=== PATIENT | female | born 1940 | race Caucasian/White ===

== ENCOUNTER 2018-02-06 18:49 | Inpatient (IN) | payer MEDICARE, BC ==
[~2018-02-06] VITALS: Ht 160 cm; Wt 90.0 kg
[2018-02-06 19:38] LABS: HEMOGLOBIN 15.7 g/dl (12.0-16.0); IMMATURE GRANULOCYTES 0.4 % (0.0-1.0); MEAN CORPUSCULAR HGB 29.4 pG CALC (26.0-32.0); MEAN CORPUSCULAR HGB CONC 33.4 g/L CALC (32.0-36.0); NEUT# 11.56 thou/uL (2.00-7.15); RED BLOOD COUNT 5.34 mill/uL (4.20-5.60); RED CELL DISTRI WIDTH 12.9 % (11.5-15.5)
[2018-02-06 19:51] LABS: ALBUMIN 4.8 g/dL (3.2-5.0); ALKALINE PHOSPHATASE 89 u/l (38-126); AMYLASE 43 u/l (30-110); ANION GAP 21 (6-22 (CALC)); BILIRUBIN, TOTAL 0.8 mg/dL (0.0-1.4); BUN 18 mg/dL (8-23); BUN/CREATININE RATIO 20 (12-20 (CALC)); CARBON DIOXIDE 23 mmol/l (22-30); CHLORIDE 103 mmol/l (95-108); CREATININE 0.9 mg/dL (0.5-1.0); GFR > 60 ML/MIN (>=60 (CALC)); GFR FOR AFR.AMER. > 60 ML/MIN (>=60 (CALC)); LIPASE 152 u/l (23-300); POTASSIUM 4.7 mmol/l (3.5-5.1); SGOT/AST 40 u/l (9-36); SGPT/ALT 56 u/l (11-66); SODIUM 142 mmol/l (137-146); TOTAL PROTEIN 8.3 g/dL (6.3-8.2)
[2018-02-06 20:02] LABS: MYOGLOBIN 86 ng/mL (0 - 62)
[2018-02-06] MEDS ORDERED: METOPROLOL SUCC50 MG PO (20:03)
[2018-02-06] MEDS ORDERED: PROTONIX40 M4 ×2 (20:04→20:06)
[2018-02-06] MEDS ORDERED: LEVOTHYROXIN50 MC1 PO (20:04)
[2018-02-06] MEDS ORDERED: OCUVIT1 PO (20:05)
[2018-02-06] MEDS ORDERED: ASPIRIN ADULT L81 MG PO (20:05)
[2018-02-06] MEDS ORDERED: OTEZLA 10 & 201 TAB (20:05)
[2018-02-06] MEDS ORDERED: DUTOPROL1 TA1 PO (20:06)
[2018-02-06 22:29] LABS: URINE BILIRUBIN - DIPSTICK NEGATIVE (NEGATIVE); URINE BLOOD DIPSTICK TRACE-INTACT (NEGATIVE); URINE COLOR YELLOW; URINE GLUCOSE - DIPSTICK NEGATIVE (NEGATIVE); URINE KETONE 15 mg/dL (NEGATIVE); URINE LEUK ESTERASE NEGATIVE (NEGATIVE); URINE NITRITE - DIPSTICK NEGATIVE (Negative); URINE PROTEIN - DIPSTICK NEGATIVE (NEG-TRACE); URINE UROBILINOGEN - DIPSTICK 0.2 E.U./dL (0.2)
[2018-02-06 22:30] LABS: URINE CLARITY SL CLOUDY
[2018-02-07 00:10] VITALS: BP 130/72
[2018-02-07 04:35] VITALS: BP 119/67
[2018-02-07 07:55] VITALS: BP 118/55
[2018-02-07 10:21] LABS: HEMATOCRIT 41.4 % (37.0-47.0); MEAN CORPUSCULAR HGB CONC 31.9 g/L CALC (32.0-36.0); RED BLOOD COUNT 4.55 mill/uL (4.20-5.60); RED CELL DISTRI WIDTH 13.3 % (11.5-15.5)
[2018-02-07 10:31] LABS: HEMOGLOBIN 13.2 g/dl (12.0-16.0)
[2018-02-07 10:51] LABS: ALKALINE PHOSPHATASE 64 u/l (38-126); ANION GAP 15 (6-22 (CALC)); BILIRUBIN, TOTAL 0.7 mg/dL (0.0-1.4); BUN 17 mg/dL (8-23); BUN/CREATININE RATIO 19 (12-20 (CALC)); CARBON DIOXIDE 29 mmol/l (22-30); CHLORIDE 103 mmol/l (95-108); CREATININE 0.9 mg/dL (0.5-1.0); GFR > 60 ML/MIN (>=60 (CALC)); GFR FOR AFR.AMER. > 60 ML/MIN (>=60 (CALC)); POTASSIUM 4.7 mmol/l (3.5-5.1); SGOT/AST 25 u/l (9-36); SGPT/ALT 47 u/l (11-66); SODIUM 143 mmol/l (137-146)
[2018-02-07 10:53] LABS: ALBUMIN 3.6 g/dL (3.2-5.0); TOTAL PROTEIN 6.4 g/dL (6.3-8.2)
== END 2018-02-07 14:52 | disposition home or self-care (01) | DRG 392 ==
LOC: ED 18:49 → ED-I 22:08 → ED 22:54 → MS2 22:55
PROVIDERS: Emergency Medicine; Nurse Practitioner; ADMIT Internal Medicine; ATTEND Internal Medicine
DX: K52.9 Noninfective gastroenteritis and colitis, unspecified (principal); K56.609 Unspecified intestinal obstruction, unspecified as to partial versus complete obstruction; E03.9 Hypothyroidism, unspecified; I10 Essential (primary) hypertension; K21.9 Gastro-esophageal reflux disease without esophagitis; L40.9 Psoriasis, unspecified; M19.90 Unspecified osteoarthritis, unspecified site; Z85.6 Personal history of leukemia; Z92.21 Personal history of antineoplastic chemotherapy
CPT/HCPCS: Q9967; S0164

== ENCOUNTER 2018-02-14 13:37 | Observation (INO) | payer MEDICARE, BC ==
[~2018-02-14] VITALS: Ht 160 cm; Wt 98.0 kg
[~2018-02-14 13:37] MED LIST: ASPIRIN ADULT L81 MG PO; DUTOPROL1 TA1 PO; LEVOTHYROXIN50 MC1 PO; METOPROLOL SUCC50 MG PO; OCUVIT1 PO; OTEZLA 10 & 201 TAB; PROTONIX40 M4
--- NOTE | 2018-02-14 13:48 | NUR ---
PT TO ROOM FOR EXAM
--- NOTE | 2018-02-14 14:15 | NUR ---
#20 IV STARTED IN LAC WITH BLOOD SPECIMENS OBTAINED. PT TOLERATE WELL. CHANGED INTO GOWN AND PROVIDED WARM BLANKET PER REQUEST. PLACED ON BORE MILL OPERATOR FOR PLASTIC WITH Q30 MIN BP CHECKS. PT REPORTS BEING DISCHARGED FROM [facility] AND TO HAVE FOLLOW UP WITH GI SPECIALIST IN 3 WEEKS. IVF WERE INITIATED TO LAC AND INFUSING WITHOUT DIFFICULTY. SITE FREE FROM REDNESS/WARMTH/SWELLING. ZOFRAN IV ADMINISTERED PER COMPLAINT OF NAUSEA. PT TOLERATED WELL. INFORMED OF WAIT TIME FOR RESULTS AND ORDER FOR CT ABD/PELVIS WITH PO AND IV CONTRAST. VERBALIZED UNDERSTANDING. CALL LIGHT GIVEN. VERBALIZES NO NEEDS AT THIS TIME.
[2018-02-14 14:24] LABS: HEMATOCRIT 47.1 % (37.0-47.0); IMMATURE GRANULOCYTES 0.5 % (0.0-1.0); MEAN CELL VOLUME 89.2 fL CALC (80.0-100.0); MEAN CORPUSCULAR HGB 29.5 pG CALC (26.0-32.0); MEAN CORPUSCULAR HGB CONC 33.1 g/L CALC (32.0-36.0); NEUT# 15.14 thou/uL (2.00-7.15); RED BLOOD COUNT 5.28 mill/uL (4.20-5.60); RED CELL DISTRI WIDTH 13.1 % (11.5-15.5)
[2018-02-14 14:27] LABS: HEMOGLOBIN 15.6 g/dl (12.0-16.0)
--- NOTE | 2018-02-14 14:31 | NUR ---
PATIENT TOLERATING PO CONTRAST WELL. WILL CONTINUE TO MONITOR. CALL LIGHT PLACED WITHIN REACH, ASKED TO CALL FOR ASSISTANCE. FRIENDS AT BEDSIDE.
[2018-02-14 14:34] LABS: ALKALINE PHOSPHATASE 84 u/l (38-126); ANION GAP 22 (6-22 (CALC)); BILIRUBIN, TOTAL 0.8 mg/dL (0.0-1.4); BUN 20 mg/dL (8-23); BUN/CREATININE RATIO 21 (12-20 (CALC)); CARBON DIOXIDE 23 mmol/l (22-30); CHLORIDE 103 mmol/l (95-108); GFR 54 ML/MIN (>=60 (CALC)); GFR FOR AFR.AMER. > 60 ML/MIN (>=60 (CALC)); LIPASE 220 u/l (23-300); POTASSIUM 4.7 mmol/l (3.5-5.1); SGOT/AST 37 u/l (9-36); SGPT/ALT 58 u/l (11-66); SODIUM 143 mmol/l (137-146)
[2018-02-14] MEDS ORDERED: MONOPRIL40 MG PO (14:34)
[2018-02-14 14:35] LABS: ALBUMIN 4.7 g/dL (3.2-5.0); TOTAL PROTEIN 7.9 g/dL (6.3-8.2)
[2018-02-14] MEDS ORDERED: PRESERVISION PO (14:36)
[2018-02-14] MEDS ORDERED: PULMICORT0.25 MG/2 IN (14:37)
--- NOTE | 2018-02-14 15:22 | NUR ---
IV FLUIDS COMPLETE AT THIS TIME. DRINKING THIRD CUP OF PO CONTRAST.
--- NOTE | 2018-02-14 16:20 | NUR ---
RADIOLOGY CALL TO INFORM PATIENT READY FOR CT SCAN. NO ANSWER. WILL ATTEMPT. IV FLUIDS INFUSING WELL.
--- NOTE | 2018-02-14 17:05 | NUR ---
PATIENT AMBULATES TO BATHROOM, URINE SAMPLE OBTAINED, REPORTS ABDOMINAL DISCONFORT STATES, DENIES ANY PAIN. ZOSYN ANTIBIOTIC STARTED AND IV FLUID BOLUS INFUSING. UPDATED ON WAIT TIME. WILL CONTINUE TO MONITOR.
--- NOTE | 2018-02-14 17:14 | NUR ---
MD AT BEDSIDE TO DISCUSS RESULTS.
--- NOTE | 2018-02-14 17:14 | NUR ---
SBAR PRINTED TO FLOOR
[2018-02-14 17:27] LABS: URINE BILIRUBIN - DIPSTICK NEGATIVE (NEGATIVE); URINE BLOOD DIPSTICK TRACE-INTACT (NEGATIVE); URINE COLOR YELLOW; URINE GLUCOSE - DIPSTICK NEGATIVE (NEGATIVE); URINE KETONE NEGATIVE (NEGATIVE); URINE LEUK ESTERASE NEGATIVE (NEGATIVE); URINE NITRITE - DIPSTICK NEGATIVE (Negative); URINE PROTEIN - DIPSTICK NEGATIVE (NEG-TRACE); URINE SPECIFIC GRAVITY <=1.005; URINE UROBILINOGEN - DIPSTICK 0.2 E.U./dL (0.2)
--- NOTE | 2018-02-14 17:32 | NUR ---
ATTEMPT MADE TO CALL REPORTS, SPOKE TO KIERA. STATES "NURSE IS IN A PATIENT ROOM SHE WILL CALL YOU BACK."
[2018-02-14 17:46] LABS: URINE CLARITY CLEAR
--- NOTE | 2018-02-14 17:56 | NUR ---
REPORT GIVEN TO JAYY PRATHER.
--- NOTE | 2018-02-14 18:00 | NUR ---
TRANSPORTED TO [facility] WITH TELE VIA STRETCHER. NORMAL SALINE BOLUS TO CONTINUE INFUSING ON [facility]. BEDSIDE REPORT GIVEN TO JAYY PRATHER. CARE RELINQUISHED.
--- NOTE | 2018-02-14 18:21 | NUR ---
PT ARRIVED TO FLOOR AT 1805 VIA STRETCHER ACCOMPANIED BY JAYY JEWELL. AMBULATES WITH STEADY GAIT. DENIES PAIN. NO NAUSEA. REQUESTING ICE CHIPS. REPORTING OF CONCERNS ENCOURAGED. NS BOLUS INFUSING. PLAN OF CARE DISCUSSED. CALL LIGHT REVIEWED AND IN REACH.
[2018-02-14 18:24] VITALS: BP 140/78
[2018-02-14 18:43] LABS: C. DIFFICILE TOXIN A&B NEGATIVE (NEGATIVE)
--- NOTE | 2018-02-14 19:00 | NUR ---
RECEIVED CHANGE OF SHIFT REPORT FROM JAYY PRATHER. PT LYING IN BED. NO VOICED COMPLAINTS. WILL CONTINUE TO MONITOR.
[2018-02-14 23:20] VITALS: BP 120/68
--- NOTE | 2018-02-15 | NUR ---
PT RESTING QUIETLY. NO APPARENT ACUTE DISTRESS NOTED. NO VOICED COMPLAINTS. WILL CONTINUE TO MONITOR.
--- NOTE | 2018-02-15 04:00 | NUR ---
PATIENT RESTING WELL WITH EYES CLOSED AND APPEARS TO BE ASLEEP. NO APPARENT ACUTE CHANGES NOTED IN PT'S CONDITION.
[2018-02-15 04:45] VITALS: BP 120/64
[2018-02-15 05:29] LABS: MEAN CELL VOLUME 91.3 fL CALC (80.0-100.0); MEAN CORPUSCULAR HGB 29.6 pG CALC (26.0-32.0); MEAN CORPUSCULAR HGB CONC 32.4 g/L CALC (32.0-36.0); RED BLOOD COUNT 4.02 mill/uL (4.20-5.60); RED CELL DISTRI WIDTH 13.3 % (11.5-15.5)
[2018-02-15 05:58] LABS: ALKALINE PHOSPHATASE 49 u/l (38-126); ANION GAP 14 (6-22 (CALC)); BILIRUBIN, TOTAL 0.6 mg/dL (0.0-1.4); BUN 15 mg/dL (8-23); BUN/CREATININE RATIO 17 (12-20 (CALC)); CARBON DIOXIDE 26 mmol/l (22-30); CHLORIDE 109 mmol/l (95-108); CREATININE 0.9 mg/dL (0.5-1.0); GFR > 60 ML/MIN (>=60 (CALC)); GFR FOR AFR.AMER. > 60 ML/MIN (>=60 (CALC)); MAGNESIUM 1.8 mg/dL (1.6-2.3); POTASSIUM 4.2 mmol/l (3.5-5.1); SGOT/AST 26 u/l (9-36); SGPT/ALT 41 u/l (11-66); SODIUM 144 mmol/l (137-146)
[2018-02-15 06:06] LABS: TOTAL PROTEIN 5.5 g/dL (6.3-8.2)
[2018-02-15 06:38] LABS: HEMOGLOBIN 11.9 g/dl (12.0-16.0)
[2018-02-15 06:39] LABS: HEMATOCRIT 36.7 % (37.0-47.0)
--- NOTE | 2018-02-15 06:40 | NUR ---
CONSULT CALLED TO DR PATIÑO
[2018-02-15 07:14] VITALS: BP 130/82
--- NOTE | 2018-02-15 07:22 | NUR ---
REPORT RECEIVED FROM JAYY GIL. PT SITTING UPRIGHT IN BED. NPO STATUS REVIEWED. PT DENIES PAIN AND NAUSEA. REPORTING OF CONCERNS ENCOURAGED. PLAN OF CARE DISCUSSED. CALL LIGHT REVIEWED AND IN REACH. PT STATES UNDERSTANDING.
[2018-02-15 10:45] VITALS: BP 143/78
--- NOTE | 2018-02-15 11:28 | NUR ---
DR. PATIÑO AND TRIP WHITLEY IN TO SEE PT. AT THIS TIME.
[2018-02-15 15:07] VITALS: BP 134/70
--- NOTE | 2018-02-15 15:47 | NUR ---
PT SITTING IN CHAIR AT BEDSIDE. DENIES COMPLAINTS. FRIEND PRESENT. CALL LIGHT WITHIN REACH.
[2018-02-15 19:07] VITALS: BP 136/68
--- NOTE | 2018-02-15 20:10 | NUR ---
RECEIVED CHANGE OF SHIFT REPORT FROM JAYY PRATHER. PT ALERT AND ORIENTED AND SITTING UP IN CHAIR. NO VOICED COMPLAINTS AT THIS TIME. NO APPARENT ACUTE DISTRESS NOTED. WILL CONTINUE TO MONITOR.
--- NOTE | 2018-02-16 | NUR ---
NO APPARENT ACUTE CHANGES NOTED IN PT'S CONDITION AT THIS TIME.
[2018-02-16 00:15] VITALS: BP 131/69
--- NOTE | 2018-02-16 04:00 | NUR ---
NO APPARENT ACUTE CHANGES NOTED IN PT'S CONDITION. RESTED WELL DURING THE NIGHT.
[2018-02-16 04:25] VITALS: BP 113/68
[2018-02-16 05:59] LABS: ALBUMIN 3.1 g/dL (3.2-5.0); ALKALINE PHOSPHATASE 49 u/l (38-126); ANION GAP 15 (6-22 (CALC)); BILIRUBIN, TOTAL 0.4 mg/dL (0.0-1.4); BUN 9 mg/dL (8-23); BUN/CREATININE RATIO 13 (12-20 (CALC)); CARBON DIOXIDE 25 mmol/l (22-30); CHLORIDE 109 mmol/l (95-108); CREATININE 0.7 mg/dL (0.5-1.0); GFR > 60 ML/MIN (>=60 (CALC)); GFR FOR AFR.AMER. > 60 ML/MIN (>=60 (CALC)); MAGNESIUM 1.9 mg/dL (1.6-2.3); POTASSIUM 4.3 mmol/l (3.5-5.1); SGOT/AST 26 u/l (9-36); SGPT/ALT 47 u/l (11-66); SODIUM 144 mmol/l (137-146); TOTAL PROTEIN 5.6 g/dL (6.3-8.2)
[2018-02-16 06:41] LABS: HEMATOCRIT 37.1 % (37.0-47.0); HEMOGLOBIN 11.9 g/dl (12.0-16.0); IMMATURE GRANULOCYTES 0.2 % (0.0-1.0); MEAN CELL VOLUME 92.1 fL CALC (80.0-100.0); MEAN CORPUSCULAR HGB 29.5 pG CALC (26.0-32.0); MEAN CORPUSCULAR HGB CONC 32.1 g/L CALC (32.0-36.0); NEUT# 2.73 thou/uL (2.00-7.15); RED BLOOD COUNT 4.03 mill/uL (4.20-5.60); RED CELL DISTRI WIDTH 13.2 % (11.5-15.5)
[2018-02-16 08:10] VITALS: BP 141/69
--- NOTE | 2018-02-16 08:10 | NUR ---
ASSESSMENT IS COMPLETED: PT IS AWARE OF NPO STATUS. IV SITE IN LAC IS INFUSING WITHOUT DIFFICULTY. HR IS REG, PULSES ARE STRONG X4, ABD IS SOFT WITH ACTIVE BS. CONTINUE TO OBSERVE AND MONITOR. TELE MONITOR.
[2018-02-16 11:30] VITALS: BP 148/62
--- NOTE | 2018-02-16 12:00 | NUR ---
PT IS RELAXING IN BED WITH NO DISTRESS NOTED. IV SITE IS FREE FROM REDNESS OR EDEMA. DISCONNECTED FOR US TO BE COMPLTED. DR. HALL IN THE ROOM. PT WAS UPSET THEN CALMED DOWN FROM THE INFORMATION. IV SITE WAS FLUSHABLE. CONTINUE TO OSBERVE AND MONITOR.
--- NOTE | 2018-02-16 12:30 | NUR ---
PT RETURNED FROM HAVING US COMPLETED: WILL BE NPO AFTER MIDNIGHT FOR HIDA SCAN IN THE AM.
[2018-02-16 15:45] VITALS: BP 123/50
--- NOTE | 2018-02-16 16:00 | NUR ---
IV SITE WAS RESTARTED DUE TO THE LAC BEGINNING TO LEAK., PT TOLERATED WELL. PT TALKING WITH FAMILY AND FRIENDS ON THE PHONE. CONTINUE TO OBSERVE AND MONITOR.
--- NOTE | 2018-02-16 18:30 | NUR ---
PT IS VISITING WITH FRIENDS.
[2018-02-16 19:00] VITALS: BP 155/71
--- NOTE | 2018-02-16 19:30 | NUR ---
PATIENT SITTING UP IN THE CHAIR-AWAKE ALERT AND ORIENTEDX3. PATIENT WITH NO COMPLAINTS AT THIS TIME. IV SITE TO LEFT ANT WRIST INTACT WITH IVF D51/2NS WITH 20MEQ OF KCL INFUSING ORDERED. SITE APPEARS HEALTHY WITH GOOD BLODD RETURN. TELE MONITORING DEVICE IN PLACE. PATIENT STATES THAT SHE DID HAVE LOOSE BROWN BM TODAY. DENIES ANY DIFFICULTY WITH VOIDING. PATIENT INSTRUCTED THAT SHE WILL BE NPO AFTER MN FOR HIDA SCAN IN AM. VERBALIZES UNDERSTANDING. ABD IS SLIGHTLY DISTENDED WITH BS+. SAFETY PRECAUTIONS REINFORCED. CALL LIGHT IN REACH. WILL CONT TO MONITOR.
[2018-02-17 00:13] VITALS: BP 131/68
--- NOTE | 2018-02-17 01:17 | NUR ---
PATIENT APPEARS SLEEPING AT THIS TIME WITH EYES CLOSED. RESP ARE EVEN AND UNLABORED. IVF PATENT AND INFUSING AT 100CC/HR. CIPRO IN PROGRESS AT THIS TIME. CALL LIGHT IN REACH. NPO FOR HIDA SCAN IN AM. WILL CONT TO MONITOR.
[2018-02-17 04:11] VITALS: BP 139/69
[2018-02-17 05:34] LABS: HEMOGLOBIN 12.7 g/dl (12.0-16.0); IMMATURE GRANULOCYTES 0.3 % (0.0-1.0); MEAN CELL VOLUME 90.3 fL CALC (80.0-100.0); MEAN CORPUSCULAR HGB 29.4 pG CALC (26.0-32.0); MEAN CORPUSCULAR HGB CONC 32.6 g/L CALC (32.0-36.0); NEUT# 3.63 thou/uL (2.00-7.15); RED BLOOD COUNT 4.32 mill/uL (4.20-5.60)
[2018-02-17 06:02] LABS: ANION GAP 15 (6-22 (CALC)); BUN 10 mg/dL (8-23); BUN/CREATININE RATIO 13 (12-20 (CALC)); CARBON DIOXIDE 26 mmol/l (22-30); CHLORIDE 106 mmol/l (95-108); CREATININE 0.8 mg/dL (0.5-1.0); GFR > 60 ML/MIN (>=60 (CALC)); GFR FOR AFR.AMER. > 60 ML/MIN (>=60 (CALC)); MAGNESIUM 1.8 mg/dL (1.6-2.3); POTASSIUM 4.2 mmol/l (3.5-5.1); SODIUM 143 mmol/l (137-146)
[2018-02-17 09:15] VITALS: BP 174/79
--- NOTE | 2018-02-17 09:15 | NUR ---
PT HAS BEEN IN THE CHAIR, NO DISTRESS NOTED. IV SITE IS FREE FROM REDNESS OR EDEMA. PT STATES" A LITTLE UNCOMFORTABLE DUE TO WHERE IT IS LOCATED". HR IS REG,PULSES ARE STRONG X4, ABD IS SOFT WITH ACTIVE BS. TELE MONITOR IN PLACE. CONTINUE TO OBSERVE AND MONITOR.
--- NOTE | 2018-02-17 09:30 | NUR ---
PT TRANSPORTED TO HAVE NUCLEAR MED HIDA SCAN. VIA WC ACCOMPANIED BY STAFF.,
--- NOTE | 2018-02-17 10:54 | NUR ---
NUCLEAR MED HAS COMPLETED THE NUCLEAR MED
[2018-02-17 11:33] VITALS: BP 149/64
--- NOTE | 2018-02-17 12:00 | NUR ---
SPOKE WITH NUCLEAR MED STAFF., RE: PT. NEW ORDERS ARE BEING GIVEN FROM DR. TREVINO AND DR. HALL FOR DISCHARGE.
[2018-02-17] MEDS ORDERED: CIPRO XR500 M2 PO (13:45)
[2018-02-17] MEDS ORDERED: ZOFRAN ODT4 MG PO (13:46)
[2018-02-17] MEDS ORDERED: FLORASTOR250 M1 PO (13:46)
[2018-02-17] MEDS ORDERED: METRONIDAZOL500 MG PO (13:46)
--- NOTE | 2018-02-17 14:30 | NUR ---
IV SITE DISCOMTINUED CATHETER INTACT NO REDNESS OR EDEMA. DISCHARGE INSTRUCTIONS GIVEN AND VERBALIZED UNDERSTANDING FRIEND IN THE ROOM. Discharge instructions given. Patient verbalizes understanding of same. Discharged in stable condition via Wheelchair to Home with family. All belongings sent with pt.
== END 2018-02-17 14:29 | disposition home or self-care (01) ==
LOC: ED 13:37 → ED-I 17:08 → ED 17:24 → MS2 17:25
PROVIDERS: Emergency Medicine; Nurse Practitioner Family; ADMIT Internal Medicine; ATTEND Internal Medicine
DX: K80.20 Calculus of gallbladder without cholecystitis without obstruction (principal); C91.10 Chronic lymphocytic leukemia of B-cell type not having achieved remission; I10 Essential (primary) hypertension; J45.909 Unspecified asthma, uncomplicated; K21.9 Gastro-esophageal reflux disease without esophagitis; E03.9 Hypothyroidism, unspecified; M19.90 Unspecified osteoarthritis, unspecified site; L40.9 Psoriasis, unspecified
CPT/HCPCS: A9537; Q9967

== ENCOUNTER 2022-02-18 10:32 | Emergency (ER) | payer MEDICARE, BC ==
[~2022-02-18] VITALS: Ht 160 cm; Wt 91.0 kg
[~2022-02-18 10:32] MED LIST changes: +CIPRO XR500 M2 PO; +FLORASTOR250 M1 PO; +METRONIDAZOL500 MG PO; +MONOPRIL40 MG PO; +PRESERVISION PO; +PULMICORT0.25 MG/2 IN; +ZOFRAN ODT4 MG PO
[2022-02-18 10:43] VITALS: BP 136/60
[2022-02-18 11:01] VITALS: BP 88/56
[2022-02-18 11:41] VITALS: BP 131/54
[2022-02-18 12:01] VITALS: BP 135/62
[2022-02-18 12:18] VITALS: BP 135/62
== END 2022-02-18 12:26 | disposition home or self-care (01) ==
LOC: ED 10:32
DX: S93.601A Unspecified sprain of right foot, initial encounter (principal); I10 Essential (primary) hypertension; K21.9 Gastro-esophageal reflux disease without esophagitis; W01.0XXA Fall on same level from slipping, tripping and stumbling without subsequent striking against object, initial encounter; Y92.520 Airport as the place of occurrence of the external cause